=== PATIENT | male | born 2000 | race Caucasian/White ===

== ENCOUNTER 2020-06-06 17:53 | Emergency (ER) | payer BC ==
[~2020-06-06] VITALS: Ht 175.3 cm; Wt 100.0 kg
[2020-06-06 18:02] VITALS: BP 134/90; TEMP 98.1
[2020-06-06] MEDS ORDERED: CEPHALEXIN500 M1 PO (19:01)
[2020-06-06 19:02] VITALS: PULSE 76
== END 2020-06-06 19:08 | disposition home or self-care (01) ==
LOC: COL.ER 17:53
DX: L02.415 Cutaneous abscess of right lower limb (principal)